=== PATIENT | female | born 1975 | race Caucasian/White ===

== ENCOUNTER 2021-04-05 14:04 | Emergency (ER) | payer OTHER ==
[2021-04-05 14:11] VITALS: TEMP 98.2
[2021-04-05] MEDS ORDERED: SODIUM CHLORIDE 0.9% 1,000 ML IV STA (14:55)
[2021-04-05] MEDS ORDERED: ASPIRIN 81 MG PO STA (14:55)
--- NOTE | 2021-04-05 15:41 | XR ---
EXAMINATION TYPE: XR chest 1V portable DATE OF EXAM: 04/05/2021 COMPARISON: NONE HISTORY: Chest pain and dizziness TECHNIQUE: Single frontal view of the chest is obtained. FINDINGS: There is no focal air space opacity, pleural effusion, or pneumothorax seen. The cardiac silhouette size is within normal limits. The osseous structures are intact. IMPRESSION: No acute process.
[2021-04-05] MEDS: KETOROLAC 15 MG/ML 1 ML VIAL IVP STA ×2 (15:50→15:52)
[2021-04-05] MEDS ORDERED: LOPERAMIDE 2 MG CAP PO STA (16:13)
[2021-04-05 16:20] LABS: Basophils % (A) 0 %; Eosinophils # (A) 0.1 k/uL (0-0.7); Eosinophils % (A) 2 %; HCT 45.5 % (34.0-46.0); Lymphocytes # (A) 1.6 k/uL (1.0-4.8); Lymphocytes % (A) 24 %; MCH 30.2 pg (25.0-35.0); MCV 91.5 fL (80.0-100.0); Mean Platelet Volume 7.9; Monocytes # (A) 0.4 k/uL (0-1.0); Monocytes % (A) 6 %; Neutrophils # (A) 4.4 k/uL (1.3-7.7); Neutrophils % (A) 67 %; Platelet Count 212 k/uL (150-450); RBC 4.98 m/uL (3.80-5.40); RDW 13.8 % (11.5-15.5); WBC 6.5 k/uL (3.8-10.6)
[2021-04-05 16:22] VITALS: RESP 18
[2021-04-05 16:33] LABS: INR 0.9 (<1.2); Partial Thromboplastin Time 24.8 sec (22.0-30.0); Prothrombin Time 9.9 sec (9.0-12.0)
[2021-04-05 16:37] LABS: ALT 25 U/L (4-34); AST 33 U/L (14-36); African American GFR (CKD) >90 (>60 ml/min/1.73 sqM); Albumin 4.3 g/dL (3.5-5.0); Alkaline Phosphatase 89 U/L (38-126); Anion Gap 10 mmol/L; Blood Urea Nitrogen 10 mg/dL (7-17); Calcium 10.2 mg/dL (8.4-10.2); Carbon Dioxide 25 mmol/L (22-30); Chloride 104 mmol/L (98-107); Glucose 130 mg/dL (74-99); Magnesium 1.9 mg/dL (1.6-2.3); Non-African American GFR(CKD) >90 (>60 ml/min/1.73 sqM); Potassium 4.1 mmol/L (3.5-5.1); Sodium 139 mmol/L (137-145); Total Bilirubin 0.4 mg/dL (0.2-1.3); Total Protein 6.8 g/dL (6.3-8.2)
--- NOTE | 2021-04-05 16:42 | ED ---
General Adult HPI - General Chief complaint: Chest Pain Stated complaint: Chest Pain, dizziness Time Seen by Provider: 04/05/21 14:17 Source: patient, RN notes reviewed, old records reviewed Mode of arrival: wheelchair Limitations: no limitations - History of Present Illness Initial comments: Patient is a 45-year-old female with no significant past medical history except for "hypoglycemic episodes." Patient resents emergency department with multiple complaints. Patient has been having symptoms for COVID-19 for over 10 days. She was diagnosed on the . It is currently the . She is complaining of intermittent shortness of breath, nonspecific pleuritic chest pain, mild cough, although which are improving. She is complaining of persistent diarrhea at this time. She has any lower extremity swelling, history of blood clots. Denies any abdominal pain, nausea, vomiting. Denies any lightheadedness. Denies any headaches. She was not vaccinated. She otherwise has no acute complaints at this time. Her primary complaints for the pleuritic chest pain as well as the diarrhea, both of which have been ongoing for over 10 days. She believes she is dehydrated. She is also wondering if she qualifies for the monoclonal antibody. - Related Data Home Medications Medication Instructions Recorded Confirmed Acetaminophen Tab [Tylenol Tab] 1,000 mg PO Q6HR PRN 04/05/21 04/05/21 Cranberry Fruit Extract [Cranberry] 500 mg PO DAILY 04/05/21 04/05/21 Ibuprofen [Motrin Ib] 400 mg PO Q8H PRN 04/05/21 04/05/21 Multivitamins, Thera [Multivitamin 1 tab PO DAILY 04/05/21 04/05/21 (formulary)] Previous Rx's Medication Instructions Recorded Acetaminophen Tab [Tylenol] 500 mg PO Q6H PRN 7 Days #28 tablet 04/05/21 Acetaminophen [Tylenol Extra 500 mg PO Q6H PRN #28 packet 04/05/21 Strength] Loperamide [Imodium] 2 mg PO QID PRN 7 Days #28 tab 04/05/21 Loperamide [Imodium] 2 mg PO TID PRN #21 tab 04/05/21 Allergies Allergy/AdvReac Type Severity Reaction Status Date / Time erythromycin base Allergy Unknown Verified 04/05/21 16:33 Review of Systems ROS Statement: Those systems with pertinent positive or pertinent negative responses have been documented in the HPI. Review of Systems: CONST: Denies fever EYES: Denies blurry vision ENT: Denies nasal congestion C/V: Endorses intermittent pleuritic chest pain RESP: Endorses intermittent shortness of breath GI: Endorses diarrhea : Denies dysuria SKIN: Denies rash. MSK: Denies joint pain. NEURO: Denies headache ROS Other: All systems not noted in ROS Statement are negative. Past Medical History Past Medical History: No Reported History History of Any Multi-Drug Resistant Organisms: None Reported Past Surgical History: No Surgical Hx Reported Past Psychological History: Anxiety Smoking Status: Current every day smoker Past Alcohol Use History: None Reported Past Drug Use History: None Reported General Exam - General Exam Comments Initial Comments: General: Appears in mild distress secondary to generalized discomfort HEAD: Normal with no signs of head trauma. EYES: PERRLA, EOMI, conjunctiva normal, no discharge. ENT: Hearing grossly intact, normal oropharynx. Moist mucous membranes RESPIRATORY: Clear breath sounds bilaterally. No wheezes, rales, or rhonchi. C/V: Regular rate and rhythm. S1 and S2 auscultated, no edema, peripheral pulses 2+ and intact throughout ABD: Abd is soft, nontender, nondistended EXT: Normal range of motion, no obvious deformity SKIN: No rashes or lesions observed on exposed skin. NEURO: Alert and oriented x 4. Cranial nerves II-XII intact. No focal sensory or strength deficits. Limitations: no limitations Course Vital Signs 04/05/21 04/05/21 04/05/21 14:07 14:18 15:11 Temperature 98.2 F Pulse Rate 80 63 Respiratory 20 20 18 Rate Blood Pressure 119/80 O2 Sat by Pulse 100 95 Oximetry 04/05/21 04/05/21 16:11 17:29 Temperature 98.2 F Pulse Rate 71 73 Respiratory 18 18 Rate Blood Pressure 130/90 131/88 O2 Sat by Pulse 97 97 Oximetry Medical Decision Making - Medical Decision Making Based on the patient's presentation and physical exam, she is suffering from COVID-19 infection at this time. She does not meet criteria for monoclonal antibodies which I discussed with the patient, as she is over 10 days from onset of symptoms. She does seem to be overall improving, however is complaining of persistent diarrhea as well as this pleuritic chest pain which is also improving. Therefore we will obtain a cardiac workup. Cannot rule out the possibility of pulmonary embolism and the patient we will obtain a screening d- dimer. EKG, chest x-ray, troponin was also be obtained. She'll be given Imodium for diarrhea as well as Toradol, aspirin, 1 L fluid bolus. She was in agreement this plan. She'll be connected to continuous cardiac monitoring while she is here in the department. Patient's EKG revealed no signs of acute ischemia. Chest x-ray shows no acute cardio pulmonary process. Laboratory studies are remarkable for a negative troponin. D-dimer is also within normal limits. Remainder of her labs are unremarkable. On reevaluation, she is feeling improved. I did discuss with her that as she is not requiring action at this time, overall her symptoms are improving from her COVID-19 infection, and her laboratory studies and workup are negative, do believe it is safer to be discharged home. She was in agreement this plan. I instructed her to follow up with her PCP in the next few days. Was not listed in her chart and I will provide her with contact information. I will provide the patient with a prescription for Imodium, acetaminophen. I instructed the patient to follow up with their PCP in the next 3 days. I pro vided contact information for follow up with Dr. Lopez. I explained that the patient should return to the emergency department if they experience any worsening symptoms. Strict return precautions were discussed with the patient. The patient expressed understanding of these instructions. I answered all questions that the patient had. The patient was discharged home in fair condition with their prescriptions and follow up information. - Lab Data Result diagrams: 04/05/21 15:44 04/05/21 15:44 Lab Results 04/05/21 04/05/21 04/05/21 Range/Units 15:44 15:44 15:44 WBC 6.5 (3.8-10.6) k/uL RBC 4.98 (3.80-5.40) m/uL Hgb 15.0 (11.4-16.0) gm/dL Hct 45.5 (34.0-46.0) % MCV 91.5 (80.0-100.0) fL MCH 30.2 (25.0-35.0) pg MCHC 33.0 (31.0-37.0) g/dL RDW 13.8 (11.5-15.5) % Plt Count 212 (150-450) k/uL MPV 7.9 Neutrophils % 67 % Lymphocytes % 24 % Monocytes % 6 % Eosinophils % 2 % Basophils % 0 % Neutrophils # 4.4 (1.3-7.7) k/uL Lymphocytes # 1.6 (1.0-4.8) k/uL Monocytes # 0.4 (0-1.0) k/uL Eosinophils # 0.1 (0-0.7) k/uL Basophils # 0.0 (0-0.2) k/uL PT 9.9 (9.0-12.0) sec INR 0.9 (<1.2) APTT 24.8 (22.0-30.0) sec D-Dimer 0.42 (<0.60) mg/L FEU Sodium 139 (137-145) mmol/L Potassium 4.1 (3.5-5.1) mmol/L Chloride 104 (98-107) mmol/L Carbon Dioxide 25 (22-30) mmol/L Anion Gap 10 mmol/L BUN 10 (7-17) mg/dL Creatinine 0.71 (0.52-1.04) mg/dL Est GFR (CKD-EPI)AfAm >90 (>60 ml/min/1.73 sqM) Est GFR (CKD-EPI)NonAf >90 (>60 ml/min/1.73 sqM) Glucose 130 H (74-99) mg/dL Calcium 10.2 (8.4-10.2) mg/dL Magnesium 1.9 (1.6-2.3) mg/dL Total Bilirubin 0.4 (0.2-1.3) mg/dL AST 33 (14-36) U/L ALT 25 (4-34) U/L Alkaline Phosphatase 89 (38-126) U/L Troponin I (0.000-0.034) ng/mL Total Protein 6.8 (6.3-8.2) g/dL Albumin 4.3 (3.5-5.0) g/dL 04/05/21 Range/Units 15:44 WBC (3.8-10.6) k/uL RBC (3.80-5.40) m/uL Hgb (11.4-16.0) gm/dL Hct (34.0-46.0) % MCV (80.0-100.0) fL MCH (25.0-35.0) pg MCHC (31.0-37.0) g/dL RDW (11.5-15.5) % Plt Count (150-450) k/uL MPV Neutrophils % % Lymphocytes % % Monocytes % % Eosinophils % % Basophils % % Neutrophils # (1.3-7.7) k/uL Lymphocytes # (1.0-4.8) k/uL Monocytes # (0-1.0) k/uL Eosinophils # (0-0.7) k/uL Basophils # (0-0.2) k/uL PT (9.0-12.0) sec INR (<1.2) APTT (22.0-30.0) sec D-Dimer (<0.60) mg/L FEU Sodium (137-145) mmol/L Potassium (3.5-5.1) mmol/L Chloride (98-107) mmol/L Carbon Dioxide (22-30) mmol/L Anion Gap mmol/L BUN (7-17) mg/dL Creatinine (0.52-1.04) mg/dL Est GFR (CKD-EPI)AfAm (>60 ml/min/1.73 sqM) Est GFR (CKD-EPI)NonAf (>60 ml/min/1.73 sqM) Glucose (74-99) mg/dL Calcium (8.4-10.2) mg/dL Magnesium (1.6-2.3) mg/dL Total Bilirubin (0.2-1.3) mg/dL AST (14-36) U/L ALT (4-34) U/L Alkaline Phosphatase (38-126) U/L Troponin I <0.012 (0.000-0.034) ng/mL Total Protein (6.3-8.2) g/dL Albumin (3.5-5.0) g/dL - EKG Data -: EKG Interpreted by Me EKG Comments: 12-lead Electrocardiogram Interpretation Note EKG was reviewed and interpreted by myself. 12-lead ECG performed at 1422 is interpreted by me as revealing normal sinus rhythm at a rate of 75 beats per minute. [place] is normal. [place] interval is 140 ms, QRS duration is 80 ms, QTc is 410 ms.. There were no ST or T wave abnormalities to suggest myocardial ischemia or injury. R wave progression across the precordium was satisfactory. By my interpretation this EKG is non-diagnostic for acute ischemia. Disposition Clinical Impression: COVID-19 virus infection, Diarrhea, Chest pain of unknown etiology, Dehydration Disposition: HOME SELF-CARE Condition: Fair Instructions (If sedation given, give patient instructions): Coronavirus Disease 2019 (COVID-19), Acute Diarrhea (ED) Prescriptions: Loperamide [Imodium] 2 mg PO QID PRN 7 Days #28 tab PRN Reason: Diarrhea Loperamide [Imodium] 2 mg PO TID PRN #21 tab PRN Reason: Diarrhea Acetaminophen Tab [Tylenol] 500 mg PO Q6H PRN 7 Days #28 tablet PRN Reason: Pain Acetaminophen [Tylenol Extra Strength] 500 mg PO Q6H PRN #28 packet PRN Reason: Pain Is patient prescribed a controlled substance at d/c from ED?: No Referrals: None,Stated [Primary Care Provider] - 1-2 days Lina Lopez DO [Doctor of Osteopathic Medicine] - 1-2 days
[2021-04-05 17:39] VITALS: BP 131/88; PULSE 73
== END 2021-04-05 17:31 | disposition home or self-care (01) ==
LOC: EC 14:04
DX: U07.1 COVID-19 (principal); E86.0 Dehydration; F41.9 Anxiety disorder, unspecified; F17.200 Nicotine dependence, unspecified, uncomplicated; Z86.718 Personal history of other venous thrombosis and embolism; Z79.1 Long term (current) use of non-steroidal anti-inflammatories (NSAID)
CPT/HCPCS: 36415; 71045; 80053; 83735; 84484; 85025; 85379; 85610; 85730; 93005; 96360; 99285